=== PATIENT | female | born 1970 | race Caucasian/White ===

== ENCOUNTER → 2019-03-21 07:04 | Outpatient (CLI) | payer BC, SELFPAY ==
--- NOTE | 2019-03-21 07:10 | CT_ITS ---
STUDY: CT MAXILLOFACIAL SINUSES REASON FOR EXAM: Female, 48 years old. Sinusitis-sinus pressure pain. Ear pressure and pain. No previous surgeries. History of deviated septum. RADIATION DOSAGE (If Supplied By Facility): CTDIvol = ( 33.06 ) mGy, DLP = ( 755.34 ) mGycm TECHNIQUE: The patient was scanned in a multi detector CT scanner. High resolution axial imaging was performed without the administration of intravenous contrast material. Sagittal and coronal images were reconstructed. Individualized dose optimization techniques were used for this CT. COMPARISON: None. FINDINGS: The paranasal sinuses appear clear. The bilateral ostiomeatal complexes appear widely patent in the composite. There is no nasal cavity mass. There is rightward deviation of the bony nasal septum with an apical spur. However, there is no evidence of compromise of the right middle meatus. The visualized osseous structures are normal. The visualized bilateral orbital contents are normal. CT/Sinus/Facial Bone IMPRESSION: The paranasal sinuses and mastoid air cells are clear. Widely patent in the composite ostiomeatal complexes. No nasal cavity mass. Rightward deviation of the bony nasal septum with an apical spur. However, no evidence of compromise of the right middle meatus. Electronically Signed: Albino Guzmán MD at 8:30 EDT , Service support ,
== END ==
PROVIDERS: Family Provider Family Medicine; PCP Family Medicine; Referring Provider Otolaryngology; Visit Provider Otolaryngology
DX: J32.9 Chronic sinusitis, unspecified (principal)
CPT/HCPCS: 70486